=== PATIENT | female | born 1990 | race Caucasian/White ===

== ENCOUNTER 2017-08-24 01:46 | Inpatient (IN) | payer BC ==
[2017-08-24] MEDS ORDERED: Lidocaine 1% 50 ML MDV INJECT PRN (03:05)
[2017-08-24] MEDS ORDERED: Butorphanol 1 MG/ML SDV IVPUSH PRN (03:05)
[2017-08-24] MEDS ORDERED: Nalbuphine 10 MG/1 ML Vial IVPUSH PRN (03:05)
[2017-08-24] MEDS ORDERED: Carboprost Tromethamine 250 MCG/1 ML Amp IM PRN (03:05)
[2017-08-24] MEDS ORDERED: Methylergonovine 0.2 MG/1 ML Amp IM PRN (03:05)
[2017-08-24] MEDS ORDERED: Misoprostol 200 MCG Tab PO PRN (03:05)
[2017-08-24] MEDS ORDERED: Sodium Chloride 0.9% 2.5 ML Syringe FLUSH PRN (03:05)
[2017-08-24] MEDS ORDERED: Water For Irrigation,Sterile 1,000 ML Container IRR PRN (03:05)
[2017-08-24] MEDS ORDERED: Sodium Chloride 0.9% 10 ML Syringe FLUSH PRN (03:05)
[2017-08-24] MEDS ORDERED: Oxytocin/0.9 % Sodium Chloride 30 UNIT/500 ML BAG IV SCH (03:15)
--- NOTE | 2017-08-24 06:35 | PCM.LDHP ---
L&D History of Present Illness - General Date of Service: 08/24/17 Admit Problem/Dx: Patient Status Order with Admit Dx/Problem 08/24/17 02:09 Patient Status [ADT] Routine 08/24/17 03:05 Patient Status [ADT] Routine Admission Diagnosis/Problem Admission Diagnosis/Problem -related examination 08/24/17 06:30 27yo EDC 09/01/2017 38 6/7 wks active labor, B+, RI, GBS neg. Source of Information: Patient History Limitations: Reports: No Limitations - History of Present Illness Pain Score: 9 Improves with: Reports: None Worsens with: Reports: None Associated Symptoms: Reports: N - Related Data Allergies/Adverse Reactions: Allergies Allergy/AdvReac Type Severity Reaction Status Date / Time No Known Allergies Allergy Verified 08/21/17 10:56 Past Medical History [employer] History: Reports: Endocrine/Metabolic History: Reports: Hypothyroidism - Past Surgical History Endocrine Surgical History: Reports: None Social & Family History - Family History Family Medical History: Noncontributory H&P Review of Systems - Review of Systems: Review Of Systems: See Below General: Reports: No Symptoms HEENT: Reports: No Symptoms Pulmonary: Reports: No Symptoms Cardiovascular: Reports: No Symptoms Gastrointestinal: Reports: No Symptoms Genitourinary: Reports: No Symptoms Musculoskeletal: Reports: No Symptoms Skin: Reports: No Symptoms Psychiatric: Reports: No Symptoms Neurological: Reports: No Symptoms Hematologic/Lymphatic: Reports: No Symptoms Immunologic: Reports: No Symptoms L&D Exam - Exam Exam: See Below - Vital Signs Weight: 81.647 kg - OB Specific Contraction Intensity: Strong Movement: Active Heart Tones: Present Heart Tones per Min: 120 Heart Rate (FHR) Variability: Moderate (6-25 bmp) Presentation: Vertex - Ramirez Score Ramirez Score Cervix Position: Anterior Ramirez Score Consistency: Soft Ramirez Score Effacement: >80% Ramirez Score Dilation: > 5 cm Ramirez Score 's Station: -2 Ramirez Score Total: 11 - Exam General: Alert, Oriented, Cooperative HEENT: Hearing Intact Lungs: Clear to Auscultation, Normal Respiratory Effort Cardiovascular: Regular Rate, Regular Rhythm, Normal S1, Normal S2 GI/Abdominal Exam: Soft, Non-Tender (gravid) Rectal Exam: Deferred Genitourinary: Cervical dilitation Back Exam: Full Range of Motion Extremities: Normal Range of Motion, Non-Tender, No Pedal Edema, Normal Capillary Refill Skin: Warm Neurological: Reflexes Equal Bilateral, Normal Gait, Normal Speech, Normal Tone Psychiatric: Alert, Normal Affect, Normal Mood - Patient Data Lab Results Last 24 hrs: Laboratory Results - last 24 hr 08/24/17 08/24/17 Range/Units 02:54 02:54 WBC 10.44 (4.0-11.0) K/uL RBC 3.83 L (4.30-5.90) M/uL Hgb 11.6 L (12.0-16.0) g/dL Hct 33.9 L (36.0-46.0) % MCV 88.5 (80.0-98.0) fL MCH 30.3 (27.0-32.0) pg MCHC 34.2 (31.0-37.0) g/dL RDW Std Deviation 41.1 (28.0-62.0) fl RDW Coeff of Kevin 13 (11.0-15.0) % Plt Count 258 (150-400) K/uL MPV 11.40 (7.40-12.00) fL Nucleated RBC % 0.0 /100WBC Nucleated RBCs # 0 K/uL Blood Type B POSITIVE Antibody Screen NEGATIVE Result Diagrams: 08/24/17 02:54 - Problem List (1) Supervision of normal IUP (intrauterine ) in multigravida SNOMED Code(s): 727098079, 224955975 ICD Code: Z34.80 - ENCOUNTER FOR SUPRVSN OF NORMAL , UNSP TRIMESTER Status: Acute Priority: High Current Visit: Yes Qualifiers: Trimester: third trimester Qualified Code(s): Z34.83 - Encounter for supervision of other normal , third trimester Problem List Initiated/Reviewed/Updated: Yes Orders Last 24hrs: Active Orders 24 hr Category Date Time Status Patient Status [ADT] Routine ADT 08/24/17 02:09 Active Patient Status [ADT] Routine ADT 08/24/17 03:05 Active Heart Tones [RC] CONTINUOUS Care 08/24/17 03:05 Active Non Stress Test [RC] PER UNIT ROUTINE Care 08/24/17 02:09 Active Non Stress Test [RC] PER UNIT ROUTINE Care 08/24/17 03:05 Active May Shower [RC] ASDIRECTED Care 08/24/17 03:05 Active Notify Provider [RC] PRN Care 08/24/17 03:05 Active Up ad Kristal [RC] ASDIRECTED Care 08/24/17 02:09 Active Up ad Kristal [RC] ASDIRECTED Care 08/24/17 03:05 Active Vaginal Exam [RC] Click to Edit Care 08/24/17 02:09 Active Vaginal Exam [RC] PRN Care 08/24/17 03:05 Active Vital Signs [RC] PER UNIT ROUTINE Care 08/24/17 02:09 Active Vital Signs [RC] PER UNIT ROUTINE Care 08/24/17 03:05 Active Butorphanol [Stadol] Med 08/24/17 03:05 Active 1 mg IVPUSH Q1H PRN Carboprost Tromethamine [Hemabate DS] Med 08/24/17 03:05 Active 250 mcg IM ASDIRECTED PRN Lactated Ringers [Ringers, Lactated] 1,000 ml Med 08/24/17 03:15 Active IV ASDIRECTED Lidocaine 1% [Xylocaine 1%] Med 08/24/17 03:05 Active 50 ml INJECT .ONCE PRN Methylergonovine [Methergine] Med 08/24/17 03:05 Active 0.2 mg IM ASDIRECTED PRN Misoprostol [Cytotec] Med 08/24/17 03:05 Active 200 mcg PO .ONCE PRN Nalbuphine [Nubain] Med 08/24/17 03:05 Active 10 mg IVPUSH Q1H PRN Oxytocin/0.9 % Sodium Chloride [Oxytocin 30 Unit/500 ML Med 08/24/17 03:15 Active -NS] 30 unit in 500 ml IV TITRATE Sodium Chloride 0.9% [Saline Flush] Med 08/24/17 03:05 Active 10 ml FLUSH ASDIRECTED PRN Sodium Chloride 0.9% [Saline Flush] Med 08/24/17 03:05 Active 2.5 ml FLUSH ASDIRECTED PRN Water For Irrigation,Sterile [Sterile Water for Med 08/24/17 03:05 Active Irrigation] 1,000 ml IRR ASDIRECTED PRN Scalp Electrode [WOMSER] Per Unit Routine Oth 08/24/17 03:05 Ordered Peripheral IV Insertion Adult [OM.PC] Routine Oth 08/24/17 03:05 Ordered Resuscitation Status Routine Resus Stat 08/24/17 02:09 Ordered Medication Orders Butorphanol Tartrate (Stadol) 1 mg IVPUSH Q1H PRN PRN Reason: Pain Last Admin: 08/24/17 04:19 Dose: 1 mg Carboprost Tromethamine (Hemabate Ds) 250 mcg IM ASDIRECTED PRN PRN Reason: Post Hemorrhage Lactated Ringer's (Ringers, Lactated) 1,000 mls @ 150 mls/hr IV ASDIRECTED [facility] Oxytocin/Sodium Chloride (Oxytocin 30 Unit/500 Ml-Ns) 30 unit in 500 mls @ 999 mls/hr IV TITRATE [place] Lidocaine HCl (Xylocaine 1%) 50 ml INJECT .ONCE PRN PRN Reason: Laceration repair Methylergonovine Maleate (Methergine) 0.2 mg IM ASDIRECTED PRN PRN Reason: Post Hemorrhage Misoprostol (Cytotec) 200 mcg PO .ONCE PRN PRN Reason: Post Hemorrhage Nalbuphine HCl (Nubain) 10 mg IVPUSH Q1H PRN PRN Reason: Pain (severe 7-10) Sodium Chloride (Saline Flush) 10 ml FLUSH ASDIRECTED PRN PRN Reason: Keep Vein Open Sodium Chloride (Saline Flush) 2.5 ml FLUSH ASDIRECTED PRN PRN Reason: Keep Vein Open Sterile Water (Sterile Water For Irrigation) 1,000 ml IRR ASDIRECTED PRN PRN Reason: delivery Assessment/Plan Comment:: Labor A: 27yo EDC 09/01/2017 38 6/7 wks active labor, B+, RI, GBS neg. B: Admit to L&D, Epidural prn, anticipate .
[2017-08-24] MEDS: Lactated Ringers 1,000 ML IV SCH ×2 (06:41→07:43)
[2017-08-24] MEDS ORDERED: Ropivacaine 100 ML ONE (07:14)
[2017-08-24] MEDS ORDERED: fentaNYL 100 MCG/2 ML SDV ONE (07:14)
[2017-08-24] MEDS ORDERED: Ropivacaine 0.2% 2 MG/ML 20 ML SDV ONE (07:14)
--- NOTE | 2017-08-24 07:49 | PCM.PREANE ---
Preanesthetic Assessment - Procedure Proposed Procedure: labor epidural - Anesthesia/Transfusion/Family Hx Anesthesia History: Prior Anesthesia Without Reaction (epidural) Family History of Anesthesia Reaction: No Transfusion History: No Prior Transfusion(s) - Review of Systems General: No Symptoms Pulmonary: No Symptoms Cardiovascular: No Symptoms Gastrointestinal: No Symptoms Neurological: No Symptoms Other: Reports: None - Physical Assessment NPO Status Date: 08/24/17 NPO Status Time: 07:48 (clear liquids) Height: 1.65 m Weight: 81.647 kg ASA Class: 2 Mental Status: Alert & Oriented x3 Airway Class: Mallampati = 1 Dentition: Reports: Normal Dentition Thyro-Mental Finger Breadths: 3 Mouth Opening Finger Breadths: 3 ROM/Head Extension: Full Lungs: Clear to Auscultation, Normal Respiratory Effort Cardiovascular: Regular Rate, Regular Rhythm - Lab Values: Laboratory Last Values WBC 10.44 K/uL (4.0-11.0) 08/24/17 02:54 RBC 3.83 M/uL (4.30-5.90) L 08/24/17 02:54 Hgb 11.6 g/dL (12.0-16.0) L 08/24/17 02:54 Hct 33.9 % (36.0-46.0) L 08/24/17 02:54 MCV 88.5 fL (80.0-98.0) 08/24/17 02:54 MCH 30.3 pg (27.0-32.0) 08/24/17 02:54 MCHC 34.2 g/dL (31.0-37.0) 08/24/17 02:54 RDW Std Deviation 41.1 fl (28.0-62.0) 08/24/17 02:54 RDW Coeff of Kevin 13 % (11.0-15.0) 08/24/17 02:54 Plt Count 258 K/uL (150-400) 08/24/17 02:54 MPV 11.40 fL (7.40-12.00) 08/24/17 02:54 Nucleated RBC % 0.0 /100WBC 08/24/17 02:54 Nucleated RBCs # 0 K/uL 08/24/17 02:54 Blood Type B POSITIVE 08/24/17 02:54 Antibody Screen NEGATIVE 08/24/17 02:54 - Allergies Allergies/Adverse Reactions: Allergies Allergy/AdvReac Type Severity Reaction Status Date / Time No Known Allergies Allergy Verified 08/21/17 10:56 - Blood Blood Available: Yes Product(s) Available: PRBC - Acknowledgements Anesthesia Type Planned: Epidural Pt an Appropriate Candidate for the Planned Anesthesia: Yes Alternatives and Risks of Anesthesia Discussed w Pt/Guardian: Yes Pt/Guardian Understands and Agrees with Anesthesia Plan: Yes PreAnesthesia Questionnaire [employer]PLANE [employer]PA[employer]ER History: Reports: Endocrine/Metabolic History: Reports: Hypothyroidism - Past Surgical History Endocrine Surgical History: Reports: None - CURRENT (IN HOUSE) MEDS Current Meds: Current Medications Butorphanol Tartrate (Stadol) 1 mg IVPUSH Q1H PRN PRN Reason: Pain Last Admin: 08/24/17 04:19 Dose: 1 mg Carboprost Tromethamine (Hemabate Ds) 250 mcg IM ASDIRECTED PRN PRN Reason: Post Hemorrhage Lactated Ringer's (Ringers, Lactated) 1,000 mls @ 150 mls/hr IV ASDIRECTED [facility] Last Admin: 08/24/17 07:43 Dose: 150 mls/hr Oxytocin/Sodium Chloride (Oxytocin 30 Unit/500 Ml-Ns) 30 unit in 500 mls @ 999 mls/hr IV TITRATE [place] Lidocaine HCl (Xylocaine 1%) 50 ml INJECT .ONCE PRN PRN Reason: Laceration repair Methylergonovine Maleate (Methergine) 0.2 mg IM ASDIRECTED PRN PRN Reason: Post Hemorrhage Misoprostol (Cytotec) 200 mcg PO .ONCE PRN PRN Reason: Post Hemorrhage Nalbuphine HCl (Nubain) 10 mg IVPUSH Q1H PRN PRN Reason: Pain (severe 7-10) Sodium Chloride (Saline Flush) 10 ml FLUSH ASDIRECTED PRN PRN Reason: Keep Vein Open Sodium Chloride (Saline Flush) 2.5 ml FLUSH ASDIRECTED PRN PRN Reason: Keep Vein Open Sterile Water (Sterile Water For Irrigation) 1,000 ml IRR ASDIRECTED PRN PRN Reason: delivery Discontinued Medications Fentanyl (Sublimaze) Confirm Administered Dose 300 mcg .ROUTE .[facility] ONE Stop: 08/24/17 07:15 Ropivacaine (Naropin 0.2%) Confirm Administered Dose 100 mls @ as directed .ROUTE .STK-MED ONE Stop: 08/24/17 07:15 Ropivacaine (Naropin 0.2%) Confirm Administered Dose 20 ml .ROUTE .[facility] ONE Stop: 08/24/17 07:15
--- NOTE | 2017-08-24 07:56 | PCM.PRNOTE ---
- Free Text/Narrative Note: asked to see pt for epidural placement for labor pain. Pt ID, chart review, consent reviewed. discussed procedure including risks of nerve pain, nerve damage, bleeding, infection or unsuccessful epidural. Pt agrees. sitting up, sterile betadine prep x 3. sterile drape applied. L4 localized with 2% lidocaine SQ. #17 touhy WESLEY saline to approximately 5 cm. catheter easily placed taped 12 cm at skin. test dose 1.5% lidocaine with epi 1:200,000. Negative reaction noted. bolus with 100 mcg fentanyl and 6 ml 0.2% ropivicaine in divided doses over 20 minutes. Pain score 3/10. PCEA of 0.2% ropivicaine with fentanyl 2 mcg/ml running at 8 ml/hr with bolus dose of 8 ml every 10 minutes. hourly dose of 34 ml. educated on use pf PCEA bolusing
[2017-08-24] MEDS ORDERED: Ibuprofen 400 MG Tab PO PRN (11:20)
[2017-08-24] MEDS ORDERED: Benzocaine/Menthol 20%-0.5% Spray 78 GM Cannister TOP PRN (11:20)
[2017-08-24] MEDS ORDERED: Acetaminophen 500 MG Tab PO PRN (11:20)
[2017-08-24] MEDS ORDERED: Lanolin 100% Cream 7 GM Tube TOP PRN (11:20)
[2017-08-24] MEDS ORDERED: Bisacodyl 10 MG Supp RECTAL PRN (11:20)
[2017-08-24] MEDS ORDERED: Witch Hazel Medicated Pads 40/Jar TOP PRN (11:20)
[2017-08-24] MEDS ORDERED: oxyCODONE 5 MG Tab PO PRN (11:20)
[2017-08-24] MEDS ORDERED: Docusate Sodium 100 MG Cap PO PRN (11:20)
--- NOTE | 2017-08-24 11:26 | PCM.DEL ---
L & D Note - General Info Date of Service: 08/24/17 Mother's Due Date: 09/01/17 - Delivery Note Labor: Spontaneous Delivery Outcome: Livebirth Infant Delivery Method: Spontaneous Vaginal Delivery-Single Delivery Mode: Spontaneous Presentation: Vertex Nuchal Cord: None Anesthesia Type: Epidural Amniotic Fluid Description: Clear Episiotomy Type: None Laceration: None Placenta: Intact, Spontaneous Cord: 3 Vessels Estimated Blood Loss: 150 Resuscitation Needed: No Score 1 min: 9 Score 5 min: 9 Second Stage Interventions: Reports: Other (see below) (Precipitous delivery, legs open and baby delivered.) - General Info Date of Service: 08/24/17 Admission Dx/Problem (Free Text): Patient Status Order with Admit Dx/Problem 08/24/17 02:09 Patient Status [ADT] Routine 08/24/17 03:05 Patient Status [ADT] Routine Admission Diagnosis/Problem Admission Diagnosis/Problem -related examination 08/24/17 06:30 27yo EDC 09/01/2017 38 6/7 wks active labor, B+, RI, GBS neg. Functional Status: Reports: Pain Controlled - Review of Systems General: Reports: No Symptoms HEENT: Reports: No Symptoms Pulmonary: Reports: No Symptoms Cardiovascular: Reports: No Symptoms Gastrointestinal: Reports: No Symptoms Genitourinary: Reports: No Symptoms Musculoskeletal: Reports: No Symptoms Skin: Reports: No Symptoms Neurological: Reports: No Symptoms Psychiatric: Reports: No Symptoms - Patient Data Weight - Most Recent: 81.647 kg Lab Results Last 24 Hours: Laboratory Results - last 24 hr 08/24/17 08/24/17 Range/Units 02:54 02:54 WBC 10.44 (4.0-11.0) K/uL RBC 3.83 L (4.30-5.90) M/uL Hgb 11.6 L (12.0-16.0) g/dL Hct 33.9 L (36.0-46.0) % MCV 88.5 (80.0-98.0) fL MCH 30.3 (27.0-32.0) pg MCHC 34.2 (31.0-37.0) g/dL RDW Std Deviation 41.1 (28.0-62.0) fl RDW Coeff of Kevin 13 (11.0-15.0) % Plt Count 258 (150-400) K/uL MPV 11.40 (7.40-12.00) fL Nucleated RBC % 0.0 /100WBC Nucleated RBCs # 0 K/uL Blood Type B POSITIVE Antibody Screen NEGATIVE Med Orders - Current: Current Medications Acetaminophen (Tylenol Extra Strength) 500 mg PO Q4H PRN PRN Reason: Pain Acetaminophen (Tylenol Extra Strength) 1,000 mg PO Q4H PRN PRN Reason: Pain Benzocaine/Menthol (Dermoplast Pain Relief 20%-0.5% [place]) 78 gm TOP ASDIRECTED PRN PRN Reason: Perineal Comfort Measure Bisacodyl (Dulcolax) 10 mg RECTAL .ONCE PRN PRN Reason: Constipation Docusate Sodium (Colace) 100 mg PO BID PRN PRN Reason: Constipation Emollient Ointment (Lansinoh Hpa) 0 gm TOP ASDIRECTED PRN PRN Reason: Sore Nipples Ibuprofen (Motrin) 400 mg PO Q4H PRN PRN Reason: Pain Ibuprofen (Motrin) 800 mg PO Q6H PRN PRN Reason: Pain Oxycodone HCl (Oxycodone) 5 mg PO Q2H PRN PRN Reason: Pain Witch Angie (Tucks) 1 pad TOP ASDIRECTED PRN PRN Reason: comfort care Discontinued Medications Butorphanol Tartrate (Stadol) 1 mg IVPUSH Q1H PRN PRN Reason: Pain Last Admin: 08/24/17 04:19 Dose: 1 mg Carboprost Tromethamine (Hemabate Ds) 250 mcg IM ASDIRECTED PRN PRN Reason: Post Hemorrhage Fentanyl (Sublimaze) Confirm Administered Dose 300 mcg .ROUTE .STK-MED ONE Stop: 08/24/17 07:15 Lactated Ringer's (Ringers, Lactated) 1,000 mls @ 150 mls/hr IV ASDIRECTED [facility] Last Admin: 08/24/17 07:43 Dose: 150 mls/hr Oxytocin/Sodium Chloride (Oxytocin 30 Unit/500 Ml-Ns) 30 unit in 500 mls @ 999 mls/hr IV TITRATE [facility] Ropivacaine (Naropin 0.2%) Confirm Administered Dose 100 mls @ as directed .ROUTE .STK-MED ONE Stop: 08/24/17 07:15 Lidocaine HCl (Xylocaine 1%) 50 ml INJECT .ONCE PRN PRN Reason: Laceration repair Methylergonovine Maleate (Methergine) 0.2 mg IM ASDIRECTED PRN PRN Reason: Post Hemorrhage Misoprostol (Cytotec) 200 mcg PO .ONCE PRN PRN Reason: Post Hemorrhage Nalbuphine HCl (Nubain) 10 mg IVPUSH Q1H PRN PRN Reason: Pain (severe 7-10) Ropivacaine (Naropin 0.2%) Confirm Administered Dose 20 ml .ROUTE .[email or web address] ONE Stop: 08/24/17 07:15 Sodium Chloride (Saline Flush) 10 ml FLUSH ASDIRECTED PRN PRN Reason: Keep Vein Open Sodium Chloride (Saline Flush) 2.5 ml FLUSH ASDIRECTED PRN PRN Reason: Keep Vein Open Sterile Water (Sterile Water For Irrigation) 1,000 ml IRR ASDIRECTED PRN PRN Reason: delivery - Exam General: Alert, Oriented, Cooperative, No Acute Distress Lungs: Normal Respiratory Effort GI/Abdominal Exam: Soft, Non-Tender (Female) Exam: Normal External Exam, Normal Bimanual Exam, Vaginal Bleeding Back Exam: Full Range of Motion Extremities: Normal Range of Motion, Non-Tender, No Pedal Edema, Normal Capillary Refill Skin: Warm, Dry, Intact Neurological: No New Focal Deficit, Normal Speech, Normal Tone Psy/Mental Status: Alert, Normal Affect, Normal Mood - Problem List & Annotations (1) Supervision of normal IUP (intrauterine ) in multigravida SNOMED Code(s): 161828687, 142782114 Code(s): Z34.80 - ENCOUNTER FOR SUPRVSN OF NORMAL , UNSP TRIMESTER Status: Acute Priority: High Current Visit: Yes Qualifiers: Trimester: third trimester Qualified Code(s): Z34.83 - Encounter for supervision of other normal , third trimester (2) (normal spontaneous vaginal delivery) SNOMED Code(s): 85712307 Code(s): O80 - ENCOUNTER FOR FULL-TERM UNCOMPLICATED DELIVERY Status: Acute Priority: High Current Visit: Yes - Problem List Review Problem List Initiated/Reviewed/Updated: Yes - My Orders Last 24 Hours: My Active Orders 08/24/17 03:05 Heart Tones [RC] CONTINUOUS Non Stress Test [RC] PER UNIT ROUTINE May Shower [RC] ASDIRECTED Notify Provider [RC] PRN Up ad Kristal [RC] ASDIRECTED Vaginal Exam [RC] PRN Vital Signs [RC] PER UNIT ROUTINE 08/24/17 11:20 May Shower [RC] ASDIRECTED Up ad Kristal [RC] ASDIRECTED Vital Signs [RC] PER UNIT ROUTINE Acetaminophen [Tylenol Extra Strength] 1,000 mg PO Q4H PRN Acetaminophen [Tylenol Extra Strength] 500 mg PO Q4H PRN Benzocaine/Menthol [Dermoplast Pain Relief 20%-0.5% [place]] 78 gm TOP ASDIRECTED PRN Bisacodyl [Dulcolax] 10 mg RECTAL .ONCE PRN Docusate Sodium [Colace] 100 mg PO BID PRN Ibuprofen [Motrin] 400 mg PO Q4H PRN Ibuprofen [Motrin] 800 mg PO Q6H PRN Lanolin [Lansinoh HPA] See Dose Instructions TOP ASDIRECTED PRN Witch Angie [Tucks] 1 pad TOP ASDIRECTED PRN oxyCODONE 5 mg PO Q2H PRN Assess Lochia [WOMSER] Per Unit Routine Assess Uterine Involution [WOMSER] Per Unit Routine Peripheral IV Discontinue [OM.PC] Routine Resuscitation Status Routine 08/24/17 11:21 Patient Status [ADT] Routine 08/24/17 Lunch Regular Diet [DIET] - Assessment Assessment:: Delivery A: over intact perineum, RN check and noted complete, pt had a contraction and delivered without pushing, Viable female, APGARS 9/9 wt pending. EBL 150cc, intact perineum, bonding well with . - Plan Plan:: Labor A: 27yo EDC 09/01/2017 38 6/7 wks active labor, B+, RI, GBS neg. P: Admit to L&D, Epidural prn, anticipate . Delivery P: routine pp plan of care
[2017-08-24] MEDS: Acetaminophen 500 MG Tab PO PRN ×2 (13:59→19:20)
--- NOTE | 2017-08-24 17:26 | PCM48HPAN ---
Post Anesthesia Note - EVALUATION WITHIN 48HRS OF ANESTHETIC Vital Signs in Normal Range: Yes Patient Participated in Evaluation: Yes Respiratory Function Stable: Yes Airway Patent: Yes Cardiovascular Function Stable: Yes Hydration Status Stable: Yes Pain Control Satisfactory: Yes Nausea and Vomiting Control Satisfactory: Yes Mental Status Recovered: Yes
[2017-08-24] MEDS: Ibuprofen 800 MG Tab PO PRN (20:44)
[2017-08-25] MEDS: Ibuprofen 800 MG Tab PO PRN ×2 (04:55→11:36)
[2017-08-25] MEDS: Acetaminophen 500 MG Tab PO PRN (07:32)
--- NOTE | 2017-08-25 12:49 | PCM.PNPP ---
- General Info Date of Service: 08/25/17 Functional Status: Reports: Pain Controlled - Review of Systems General: Reports: No Symptoms HEENT: Reports: No Symptoms Pulmonary: Reports: No Symptoms Cardiovascular: Reports: No Symptoms Gastrointestinal: Reports: No Symptoms Genitourinary: Reports: No Symptoms Musculoskeletal: Reports: No Symptoms Skin: Reports: No Symptoms Neurological: Reports: No Symptoms Psychiatric: Reports: No Symptoms - General Info Date of Service: 08/25/17 - Patient Data Vital Signs - Most Recent: Last Vital Signs Temp 36.9 C 08/25/17 08:00 Pulse 77 08/25/17 08:00 Resp 17 08/25/17 08:00 BP 131/86 08/25/17 08:00 Pulse Ox 99 08/25/17 08:00 Weight - Most Recent: 81.647 kg Med Orders - Current: Current Medications Acetaminophen (Tylenol Extra Strength) 500 mg PO Q4H PRN PRN Reason: Pain Acetaminophen (Tylenol Extra Strength) 1,000 mg PO Q4H PRN PRN Reason: Pain Last Admin: 08/25/17 07:32 Dose: 1,000 mg Benzocaine/Menthol (Dermoplast Pain Relief 20%-0.5% [place]) 78 gm TOP ASDIRECTED PRN PRN Reason: Perineal Comfort Measure Bisacodyl (Dulcolax) 10 mg RECTAL .ONCE PRN PRN Reason: Constipation Docusate Sodium (Colace) 100 mg PO BID PRN PRN Reason: Constipation Emollient Ointment (Lansinoh Hpa) 0 gm TOP ASDIRECTED PRN PRN Reason: Sore Nipples Ibuprofen (Motrin) 400 mg PO Q4H PRN PRN Reason: Pain Ibuprofen (Motrin) 800 mg PO Q6H PRN PRN Reason: Pain Last Admin: 08/25/17 11:36 Dose: 800 mg Oxycodone HCl (Oxycodone) 5 mg PO Q2H PRN PRN Reason: Pain Witch Angie (Tucks) 1 pad TOP ASDIRECTED PRN PRN Reason: comfort care Discontinued Medications Butorphanol Tartrate (Stadol) 1 mg IVPUSH Q1H PRN PRN Reason: Pain Last Admin: 08/24/17 04:19 Dose: 1 mg Carboprost Tromethamine (Hemabate Ds) 250 mcg IM ASDIRECTED PRN PRN Reason: Post Hemorrhage Fentanyl (Sublimaze) Confirm Administered Dose 300 mcg .ROUTE .[employer] ONE Stop: 08/24/17 07:15 Last Admin: 08/25/17 01:36 Dose: Not Given Lactated Ringer's (Ringers, Lactated) 1,000 mls @ 150 mls/hr IV ASDIRECTED [facility] Last Admin: 08/24/17 07:43 Dose: 150 mls/hr Oxytocin/Sodium Chloride (Oxytocin 30 Unit/500 Ml-Ns) 30 unit in 500 mls @ 999 mls/hr IV TITRATE [facility] Ropivacaine (Naropin 0.2%) Confirm Administered Dose 100 mls @ as directed .ROUTE .[employer] ONE Stop: 08/24/17 07:15 Last Admin: 08/25/17 01:36 Dose: Not Given Lidocaine HCl (Xylocaine 1%) 50 ml INJECT .ONCE PRN PRN Reason: Laceration repair Methylergonovine Maleate (Methergine) 0.2 mg IM ASDIRECTED PRN PRN Reason: Post Hemorrhage Misoprostol (Cytotec) 200 mcg PO .ONCE PRN PRN Reason: Post Hemorrhage Nalbuphine HCl (Nubain) 10 mg IVPUSH Q1H PRN PRN Reason: Pain (severe 7-10) Ropivacaine (Naropin 0.2%) Confirm Administered Dose 20 ml .ROUTE .[employer] ONE Stop: 08/24/17 07:15 Last Admin: 08/25/17 01:36 Dose: Not Given Sodium Chloride (Saline Flush) 10 ml FLUSH ASDIRECTED PRN PRN Reason: Keep Vein Open Sodium Chloride (Saline Flush) 2.5 ml FLUSH ASDIRECTED PRN PRN Reason: Keep Vein Open Sterile Water (Sterile Water For Irrigation) 1,000 ml IRR ASDIRECTED PRN PRN Reason: delivery - Infant Interaction Disposition, : in Room with Family Infant Interaction: Holding Infant Infant Feeding: Attempted ; Nursed Fair/Poor Support Person: - Recovery Exam Fundal Tone: Firm Fundal Level: 1 Fingerbreadths Below Umbilicus Fundal Placement: Midline Lochia Amount: Scant Lochia Color: Rubra/Red Perineum Description: Intact, Minimal Bruising/Swelling Episiotomy/Laceration: None Bladder Status: Voiding Urinary Elimination: Voided - Exam General: Alert, Oriented HEENT: Pupils Equal Neck: Supple Lungs: Clear to Auscultation, Normal Respiratory Effort Cardiovascular: Regular Rate, Regular Rhythm GI/Abdominal Exam: Normal Bowel Sounds, Soft, Non-Tender, No Organomegaly, No Distention, No Abnormal Bruit, No Mass, Pelvis Stable Extremities: Normal Inspection, Normal Range of Motion, Non-Tender, No Pedal Edema, Normal Capillary Refill Skin: Warm, Dry, Intact Wound/Incisions: Healing Well Neurological: No New Focal Deficit Psy/Mental Status: Alert, Normal Affect, Normal Mood - Problem List Review Problem List Initiated/Reviewed/Updated: Yes - Assessment Assessment:: Delivery A: over intact perineum, RN check and noted complete, pt had a contraction and delivered without pushing, Viable female, APGARS 9/9 wt pending. EBL 150cc, intact perineum, bonding well with . - Plan Plan:: Labor A: 27yo EDC 09/01/2017 38 6/7 wks active labor, B+, RI, GBS neg. P: Admit to L&D, Epidural prn, anticipate . Delivery P: routine pp plan of care
== END 2017-08-25 14:14 | disposition home or self-care (01) | DRG 560 ==
LOC: MW.OBCHECK 01:46 → MW.OB 01:47 → MW.OBCHECK 02:09 → MW.OB 02:09 → OBSVTOIN 11:11
PROVIDERS: ADMIT Obstetrics & Gynecology; ATTEND Obstetrics & Gynecology
PROC: 10E0XZZ Delivery of Products of Conception, External Approach (ICD-10-PCS; principal; 2017-08-24)
DX: O80 Encounter for full-term uncomplicated delivery (principal); Z3A.38 38 weeks gestation of pregnancy; Z37.0 Single live birth
CPT/HCPCS: 01967; 36415; 59025; 59409; 85027; 86850; 86900; 86901; A9270-GY; J0595; J7120